=== PATIENT | female | born 1930 | race Caucasian/White ===

== ENCOUNTER 2016-07-15 16:25 | Outpatient (CLI) | payer MEDICARE ==
[2016-01-12 17:44] VITALS: BP 132/60
[2016-07-15 16:39] LABS: BASOPHILS % 0.3 (0.0-1.5); EOSINOPHILS % 3.6 % (0.0-6.8); LYMPHOCYTES # 1.8 # k/uL (0.6-4.0); MEAN CORPUSCULAR HEMOGLOBIN 28.8 pg (28.0-34.0); MONOCYTES # 0.4 # k/uL (0.0-0.9); MONOCYTES % 5.3 % (0.0-11.0); NEUTROPHILS # 4.5 # k/uL (1.4-7.7)
--- NOTE | 2016-07-15 17:11 | Diagnostic Imaging Report ---
[facility] [address] [facility].[address] 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 status post cardiac surgery and valve prostheses . mild COPD. No gross infiltrates or pleural effusion. Thoracic spondylosis. Impression: Status post prior cardiac surgery with mild cardiomegaly Mild COPD No acute infiltrates or pleural effusion Electronically signed on Jul 15, 2016 4:56:39 PM PLASTER TENDER by: Paul POON
== END 2016-07-15 16:26 ==
LOC: LAB 16:25
PROVIDERS: ATTEND Family Medicine
DX: J18.9 Pneumonia, unspecified organism (principal)
CPT/HCPCS: 36415; 71020; 85025

== ENCOUNTER 2016-07-30 10:37 | Outpatient (CLI) | payer MEDICARE ==
[2016-01-12 17:44] VITALS: BP 132/60
== END 2016-07-30 10:47 ==
LOC: POD 10:37
PROVIDERS: ATTEND Podiatrist Public Medicine
DX: B35.1 Tinea unguium (principal); L60.0 Ingrowing nail; M79.674 Pain in right toe(s); M79.675 Pain in left toe(s)
CPT/HCPCS: 11721; G0463

== ENCOUNTER 2016-09-30 10:56 | Outpatient (CLI) | payer MEDICARE ==
[2016-01-12 17:44] VITALS: BP 132/60
== END 2016-09-30 10:57 ==
LOC: LAB 10:56
PROVIDERS: ATTEND Family Medicine
DX: Z51.81 Encounter for therapeutic drug level monitoring (principal); Z79.01 Long term (current) use of anticoagulants; I48.91 Unspecified atrial fibrillation
CPT/HCPCS: 36415; 85610

== ENCOUNTER 2016-11-26 11:05 | Outpatient (CLI) | payer MEDICARE ==
[2016-01-12 17:44] VITALS: BP 132/60
== END 2016-11-26 11:06 ==
LOC: POD 11:05
PROVIDERS: ATTEND Podiatrist Public Medicine
DX: B35.1 Tinea unguium (principal); L60.0 Ingrowing nail; M79.674 Pain in right toe(s); M79.675 Pain in left toe(s); Z79.01 Long term (current) use of anticoagulants; M20.11 Hallux valgus (acquired), right foot; M20.12 Hallux valgus (acquired), left foot; M20.41 Other hammer toe(s) (acquired), right foot; M20.42 Other hammer toe(s) (acquired), left foot
CPT/HCPCS: 11721; G0463

== ENCOUNTER 2016-11-26 11:09 | Outpatient (CLI) | payer MEDICARE ==
[2016-01-12 17:44] VITALS: BP 132/60
== END 2016-11-26 11:10 ==
LOC: LAB 11:09
PROVIDERS: ATTEND Family Medicine
DX: I48.91 Unspecified atrial fibrillation (principal)
CPT/HCPCS: 36415; 85610

== ENCOUNTER 2016-12-24 11:50 | Outpatient (CLI) | payer MEDICARE ==
[2016-01-12 17:44] VITALS: BP 132/60
== END 2016-12-24 12:00 ==
LOC: LAB 11:50 → EDSTATUS 12:12
PROVIDERS: ATTEND Family Medicine
DX: I48.91 Unspecified atrial fibrillation (principal)
CPT/HCPCS: 36415; 85610

== ENCOUNTER 2017-01-23 10:45 | Outpatient (CLI) | payer MEDICARE ==
[2016-01-12 17:44] VITALS: BP 132/60
== END 2017-01-23 10:46 ==
LOC: LAB 10:45
PROVIDERS: ATTEND Family Medicine
DX: I48.91 Unspecified atrial fibrillation (principal)
CPT/HCPCS: 36415; 85610

== ENCOUNTER 2017-02-06 11:12 | Outpatient (CLI) | payer MEDICARE ==
[2016-01-12 17:44] VITALS: BP 132/60
== END 2017-02-06 11:13 ==
LOC: LAB 11:12
PROVIDERS: ATTEND Family Medicine
DX: I48.91 Unspecified atrial fibrillation (principal)
CPT/HCPCS: 36415; 85610

== ENCOUNTER 2017-02-16 14:09 | Outpatient (CLI) | payer MEDICARE ==
[2016-01-12 17:44] VITALS: BP 132/60
[2017-02-16 14:28] LABS: BASOPHILS % 0.7 (0.0-1.5); MEAN CORPUSCULAR HEMOGLOBIN 29.1 pg (28.0-34.0); MEAN CORPUSCULAR VOLUME 89.6 fl (80.0-100.0); MONOCYTES % 7.2 % (0.0-11.0)
[2017-02-16 15:01] LABS: eGFR (African) > 60; eGFR (Non-African) 38
== END 2017-02-16 15:00 ==
LOC: LAB 14:09
PROVIDERS: ATTEND Family Medicine
DX: E03.9 Hypothyroidism, unspecified (principal); Z51.81 Encounter for therapeutic drug level monitoring
CPT/HCPCS: 36415; 80053; 84443; 85025

== ENCOUNTER 2017-02-25 10:55 | Outpatient (CLI) | payer MEDICARE ==
[2016-01-12 17:44] VITALS: BP 132/60
== END 2017-02-25 10:56 ==
LOC: POD 10:55
PROVIDERS: ATTEND Podiatrist Public Medicine
DX: B35.1 Tinea unguium (principal); L60.0 Ingrowing nail; M79.674 Pain in right toe(s); M79.675 Pain in left toe(s); M20.11 Hallux valgus (acquired), right foot; M20.12 Hallux valgus (acquired), left foot; M20.41 Other hammer toe(s) (acquired), right foot; M20.42 Other hammer toe(s) (acquired), left foot
CPT/HCPCS: 11721; G0463

== ENCOUNTER 2017-03-12 14:47 | Outpatient (CLI) | payer MEDICARE ==
[2016-01-12 17:44] VITALS: BP 132/60
== END 2017-03-12 14:50 ==
LOC: LAB 14:47
PROVIDERS: ATTEND Family Medicine
DX: I48.91 Unspecified atrial fibrillation (principal)
CPT/HCPCS: 36415; 85610

== ENCOUNTER 2017-03-25 10:27 | Outpatient (CLI) | payer MEDICARE ==
[2016-01-12 17:44] VITALS: BP 132/60
== END 2017-03-25 10:30 ==
LOC: LAB 10:27
PROVIDERS: ATTEND Family Medicine
DX: I48.91 Unspecified atrial fibrillation (principal)
CPT/HCPCS: 36415; 85610

== ENCOUNTER 2017-04-24 12:27 | Outpatient (CLI) | payer MEDICARE ==
[2016-01-12 17:44] VITALS: BP 132/60
== END 2017-04-24 12:30 ==
LOC: LAB 12:27
PROVIDERS: ATTEND Family Medicine
DX: I48.91 Unspecified atrial fibrillation (principal)
CPT/HCPCS: 36415; 85610

== ENCOUNTER 2017-05-27 11:12 | Outpatient (CLI) | payer MEDICARE ==
[2016-01-12 17:44] VITALS: BP 132/60
== END 2017-05-27 11:13 ==
LOC: POD 11:12
PROVIDERS: ATTEND Podiatrist Public Medicine
DX: Z79.01 Long term (current) use of anticoagulants (principal); B35.1 Tinea unguium; L60.0 Ingrowing nail; M79.674 Pain in right toe(s); M79.675 Pain in left toe(s); M20.11 Hallux valgus (acquired), right foot; M20.12 Hallux valgus (acquired), left foot; M20.41 Other hammer toe(s) (acquired), right foot; M20.42 Other hammer toe(s) (acquired), left foot
CPT/HCPCS: 11721; G0463

== ENCOUNTER 2017-06-04 12:09 | Outpatient (CLI) | payer MEDICARE ==
[2016-01-12 17:44] VITALS: BP 132/60
== END 2017-06-04 12:10 ==
LOC: LAB 12:09
PROVIDERS: ATTEND Family Medicine
DX: I48.91 Unspecified atrial fibrillation (principal)
CPT/HCPCS: 36415; 85610

== ENCOUNTER 2017-07-13 11:49 | Outpatient (CLI) | payer MEDICARE ==
[2016-01-12 17:44] VITALS: BP 132/60
== END 2017-07-13 11:50 ==
LOC: LAB 11:49
PROVIDERS: ATTEND Family Medicine
DX: I48.91 Unspecified atrial fibrillation (principal)
CPT/HCPCS: 36415; 85610

== ENCOUNTER 2017-08-19 11:51 | Outpatient (CLI) | payer MEDICARE ==
[2016-01-12 17:44] VITALS: BP 132/60
== END 2017-08-19 11:53 ==
LOC: LAB 11:51
PROVIDERS: ATTEND Family Medicine
DX: I48.91 Unspecified atrial fibrillation (principal)
CPT/HCPCS: 36415; 85610

== ENCOUNTER 2017-09-02 09:55 | Outpatient (CLI) | payer MEDICARE ==
[2016-01-12 17:44] VITALS: BP 132/60
== END 2017-09-02 09:56 ==
LOC: POD 09:55
PROVIDERS: ATTEND Podiatrist Public Medicine
DX: Z79.01 Long term (current) use of anticoagulants (principal); B35.1 Tinea unguium; L60.0 Ingrowing nail; M79.674 Pain in right toe(s); M79.675 Pain in left toe(s); M20.11 Hallux valgus (acquired), right foot; M20.12 Hallux valgus (acquired), left foot; M20.41 Other hammer toe(s) (acquired), right foot; M20.42 Other hammer toe(s) (acquired), left foot
CPT/HCPCS: 11721; G0463

== ENCOUNTER 2017-09-23 10:21 | Outpatient (CLI) | payer MEDICARE ==
[2016-01-12 17:44] VITALS: BP 132/60
== END 2017-09-23 10:22 ==
LOC: LAB 10:21
PROVIDERS: ATTEND Family Medicine
DX: I48.91 Unspecified atrial fibrillation (principal)
CPT/HCPCS: 36415; 85610

== ENCOUNTER 2017-10-20 12:19 | Outpatient (CLI) | payer MEDICARE ==
[2016-01-12 17:44] VITALS: BP 132/60
== END 2017-10-20 12:20 ==
LOC: RT 12:19
PROVIDERS: ATTEND Family Medicine
DX: I48.91 Unspecified atrial fibrillation (principal); I49.9 Cardiac arrhythmia, unspecified
CPT/HCPCS: 36415; 85610

== ENCOUNTER 2017-11-10 11:11 | Outpatient (CLI) | payer MEDICARE ==
[2016-01-12 17:44] VITALS: BP 132/60
== END 2017-11-10 11:13 ==
LOC: LAB 11:11
PROVIDERS: ATTEND Family Medicine
DX: I48.91 Unspecified atrial fibrillation (principal)
CPT/HCPCS: 36415; 85610

== ENCOUNTER 2017-11-25 13:37 | Outpatient (CLI) | payer MEDICARE ==
[2016-01-12 17:44] VITALS: BP 132/60
== END 2017-11-25 14:18 ==
LOC: LAB 13:37
PROVIDERS: ATTEND Family Medicine
DX: I48.91 Unspecified atrial fibrillation (principal)
CPT/HCPCS: 36415; 85610

== ENCOUNTER 2017-12-02 10:22 | Outpatient (CLI) | payer MEDICARE ==
[2016-01-12 17:44] VITALS: BP 132/60
== END 2017-12-02 10:23 ==
LOC: POD 10:22
PROVIDERS: ATTEND Podiatrist Public Medicine
DX: Z79.01 Long term (current) use of anticoagulants (principal); B35.1 Tinea unguium; L60.0 Ingrowing nail; M79.674 Pain in right toe(s); M79.675 Pain in left toe(s); M20.11 Hallux valgus (acquired), right foot; M20.12 Hallux valgus (acquired), left foot; M20.41 Other hammer toe(s) (acquired), right foot; M20.42 Other hammer toe(s) (acquired), left foot
CPT/HCPCS: 11721; G0463

== ENCOUNTER 2017-12-21 11:26 | Outpatient (CLI) | payer MEDICARE ==
[2016-01-12 17:44] VITALS: BP 132/60
[2017-12-21 12:26] LABS: eGFR (African) > 60; eGFR (Non-African) 38
== END 2017-12-21 11:28 ==
LOC: LAB 11:26
PROVIDERS: ATTEND Family Medicine
DX: I48.2 Chronic atrial fibrillation (principal); R06.02 Shortness of breath; I48.91 Unspecified atrial fibrillation
CPT/HCPCS: 36415; 80048; 85610

== ENCOUNTER → 2018-01-14 | Outpatient (CLI) | payer MEDICARE ==
[2016-01-12 17:44] VITALS: BP 132/60
== END ==
LOC: LAB 09:59
PROVIDERS: ATTEND Family Medicine
DX: I48.91 Unspecified atrial fibrillation (principal)
CPT/HCPCS: 36415; 85610

== ENCOUNTER 2018-02-24 12:47 | Outpatient (CLI) | payer MEDICARE ==
[2016-01-12 17:44] VITALS: BP 132/60
== END 2018-02-24 12:50 ==
LOC: LAB 12:47
PROVIDERS: ATTEND Family Medicine
DX: I48.91 Unspecified atrial fibrillation (principal)
CPT/HCPCS: 36415; 85610

== ENCOUNTER 2018-04-01 13:13 | Outpatient (CLI) | payer MEDICARE ==
[2016-01-12 17:44] VITALS: BP 132/60
== END 2018-04-01 13:15 ==
LOC: LAB 13:13
PROVIDERS: ATTEND Family Medicine
DX: I48.91 Unspecified atrial fibrillation (principal)
CPT/HCPCS: 36415; 85610

== ENCOUNTER 2018-04-19 09:55 | Outpatient (CLI) | payer MEDICARE ==
[2016-01-12 17:44] VITALS: BP 132/60
[2018-04-19 10:42] LABS: eGFR (Non-African) 30
== END 2018-04-19 09:56 ==
LOC: LAB 09:55
PROVIDERS: ATTEND Internal Medicine Cardiovascular Disease
DX: I10 Essential (primary) hypertension (principal)
CPT/HCPCS: 36415; 80048

== ENCOUNTER 2018-05-04 09:00 | Outpatient (CLI) | payer MEDICARE ==
[2016-01-12 17:44] VITALS: BP 132/60
== END 2018-05-04 09:03 ==
LOC: LAB 09:00
PROVIDERS: ATTEND Family Medicine
DX: I48.91 Unspecified atrial fibrillation (principal)
CPT/HCPCS: 36415; 85610

== ENCOUNTER 2018-07-15 11:14 | Outpatient (CLI) | payer MEDICARE ==
[2016-01-12 17:44] VITALS: BP 132/60
== END 2018-07-15 11:20 ==
LOC: LAB 11:14
PROVIDERS: ATTEND Family Medicine
DX: I48.91 Unspecified atrial fibrillation (principal)
CPT/HCPCS: 36415; 85610

== ENCOUNTER 2018-08-18 11:17 | Outpatient (CLI) | payer MEDICARE ==
[2016-01-12 17:44] VITALS: BP 132/60
== END 2018-08-18 11:19 ==
LOC: LAB 11:17
PROVIDERS: ATTEND Family Medicine
DX: I48.91 Unspecified atrial fibrillation (principal)
CPT/HCPCS: 36415; 85610

== ENCOUNTER 2018-12-23 12:57 | Outpatient (CLI) | payer MEDICARE ==
[2016-01-12 17:44] VITALS: BP 132/60
== END 2018-12-23 13:00 ==
LOC: LAB 12:57
PROVIDERS: ATTEND Family Medicine
DX: I48.91 Unspecified atrial fibrillation (principal)
CPT/HCPCS: 36415; 85610

== ENCOUNTER 2019-02-08 12:52 | Outpatient (CLI) | payer MEDICARE ==
[2016-01-12 17:44] VITALS: BP 132/60
== END 2019-02-08 12:54 ==
LOC: LAB 12:52
PROVIDERS: ATTEND Family Medicine
DX: I48.91 Unspecified atrial fibrillation (principal)
CPT/HCPCS: 36415; 85610

== ENCOUNTER 2019-05-24 12:29 | Outpatient (CLI) | payer MEDICARE ==
[2016-01-12 17:44] VITALS: BP 132/60
== END 2019-05-24 12:35 ==
LOC: LAB 12:29
PROVIDERS: ATTEND Family Medicine
DX: I48.91 Unspecified atrial fibrillation (principal)
CPT/HCPCS: 36415; 85610

== ENCOUNTER 2019-06-23 11:57 | Outpatient (CLI) | payer MEDICARE ==
[2016-01-12 17:44] VITALS: BP 132/60
== END 2019-06-23 12:02 ==
LOC: LAB 11:57
PROVIDERS: ATTEND Family Medicine
DX: I48.91 Unspecified atrial fibrillation (principal)
CPT/HCPCS: 36415; 85610